=== PATIENT | female | born 1955 | race Caucasian/White ===

== ENCOUNTER 2019-01-15 07:37 | Observation (INO) | payer BC ==
[2019-01-15] MEDS ORDERED: Iodixanol 320 MG/ML 100 ML BOTTLE IV ONE (08:00)
[2019-01-15 08:11] LABS: BASO % 0.5 % (0.0-2.0); EOS % 0.6 % (0.0-4.0); HEMOGLOBIN 12.9 g/dL (11.0-16.0); LYMPH # 1.4 K/uL (1.0-4.3); LYMPH % 29.8 % (20.0-40.0); MEAN CELL VOLUME 77.8 fL (81.0-99.0); MEAN CORPUSCULAR HEMOGLOBIN 25.2 pg (27.0-31.0); MEAN CORPUSCULAR HGB CONC 32.4 g/dL (33.0-37.0); MEAN PLATELET VOLUME 8.3 fL (7.2-11.7); MONO # 0.3 K/uL (0.0-0.8); MONO % 5.6 % (0.0-10.0); NEUT # 3.1 K/uL (1.8-7.0); NEUT % 63.5 % (50.0-75.0); RBC 5.1 Mil/uL (3.80-5.20); RED CELL DISTRIBUTION WIDTH 14.8 % (11.5-14.5); WHITE BLOOD COUNT 4.8 K/uL (4.8-10.8)
[2019-01-15 08:20] LABS: PARTIAL THROMBOPLASTIN TIME 34.7 SECONDS (21-34); PROTHROMBIN TIME 10.8 SECONDS (9.7-12.2)
[2019-01-15 08:25] LABS: ALB/GLOB RATIO 1.7 (1.0-2.1); ALBUMIN 4.6 g/dL (3.5-5.0); ALT/SGPT 18 U/L (9-52); AST/SGOT 24 U/L (14-36); BLOOD UREA NITROGEN 19 mg/dL (7-17); CALCIUM 9.4 mg/dl (8.6-10.4); GFR NON-AFRICAN AMERICAN > 60; HDL CHOLESTEROL 85 mg/dL (30-70)
[2019-01-15 08:36] LABS: LDL CHOLESTEROL 57 mg/dL (0-129)
--- NOTE | 2019-01-15 08:50 | C.PDOC ---
History Of Present Illness Patient presents to ED for evaluation after an episode at approx 6:40am where she has slurred speech, B/L leg weakness anf dizziness. Episode lasted several seconds, and then resolved. Patient has had one prior similar episode, has had some outpatient workup done by insole channeler Dr. Azar (electrocardiogram, echocardiagram). She denies visual changes, sensory changes, chest pain, palpitations. PMHx: HTN, hyperlipidemia, DM II Time Seen by Provider: 01/15/19 07:41 Chief Complaint (Nursing): Dizziness/Lightheaded History Per: Patient History/Exam Limitations: no limitations Onset/Duration Of Symptoms: Mins Current Symptoms Are (Timing): Better Past Medical History Reviewed: Historical Data, Nursing Documentation, Vital Signs Vital Signs: Last Vital Signs Temp 97.9 F 01/15/19 07:44 Pulse 67 01/15/19 08:35 Resp 16 01/15/19 08:35 BP 147/61 01/15/19 08:35 Pulse Ox 100 01/15/19 08:35 Primary Care Provider: Wade Ly - Medical History PMH: Diabetes, HTN, Hypercholesterolemia - Social History Hx Alcohol Use: No Hx Substance Use: No Review Of Systems Constitutional: Negative for: Fever, Chills Cardiovascular: Negative for: Chest Pain Respiratory: Negative for: Cough, Shortness of Breath Gastrointestinal: Negative for: Nausea, Vomiting, Abdominal Pain Neurological: Positive for: Weakness, Change in Speech, Dizziness. Negative for: Numbness, Incoordination, Confusion, Seizures, Altered Mental Status, Headache Physical Exam - Physical Exam Appears: Well, Non-toxic, No Acute Distress Head: Atraumatic, Normacephalic Eye(s): bilateral: Normal Inspection, PERRL, EOMI Oral Mucosa: Moist Cardiovascular: Rhythm Regular Respiratory: Normal Breath Sounds, No Rales, No Rhonchi, No Wheezing Gastrointestinal/Abdominal: Normal Exam, Bowel Sounds, Soft, No Tenderness Extremity: Normal ROM, No Pedal Edema, No Calf Tenderness Neurological/Psych: Oriented x3, Normal Speech, Normal Cognition, Normal Cranial Nerves, No Cerebellar Signs, Normal Motor, Normal Sensation ED Course And Treatment - Laboratory Results Result Diagrams: 01/15/19 08:04 01/15/19 08:04 Lab Results: PT 10.8 SECONDS (9.7-12.2) 01/15/19 08:04 INR 1.0 01/15/19 08:04 APTT 34.7 SECONDS (21-34) H 01/15/19 08:04 Troponin I < 0.0120 ng/mL (0.00-0.120) 01/15/19 08:04 Total Bilirubin 0.6 mg/dL (0.2-1.3) 01/15/19 08:04 AST 24 U/L (14-36) 01/15/19 08:04 ALT 18 U/L (9-52) 01/15/19 08:04 Alkaline Phosphatase 65 U/L (38-126) 01/15/19 08:04 Total Protein 7.3 g/dL (6.3-8.3) 01/15/19 08:04 Albumin 4.6 g/dL (3.5-5.0) 01/15/19 08:04 Globulin 2.7 gm/dL (2.2-3.9) 01/15/19 08:04 Albumin/Globulin Ratio 1.7 (1.0-2.1) 01/15/19 08:04 O2 Sat by Pulse Oximetry: 100 NIHSS Stroke Scale 2 - Date/Time Evaluation Performed Date Performed: 01/15/19 Time Performed: 07:45 When Was NIHSS Performed: Baseline - How Severe is the Stroke Level of Consciousness: 0=Alert LOC to Questions: 0=Both comments correct LOC to commands: 0=Obeys both correctly Best Gaze: 0=Normal Visual: 0=No visual loss Facial: 0=Normal Motor Arm - Left: 0=No drift Motor Arm - Right: 0=No drift Motor Leg - Left: 0=No drift Motor Leg - Right: 0=No drift Limb Ataxia: 0=Absent Sensory: 0=Normal Best Language: 0=No aphasia Dysarthia: 0=Normal articulation Extinction & Inattention (Neglect): 0=Normal, no object Score: 0 rTPA Inclusion/Exclusion - Refusal of Treatment Patient Refused Treatment: No - Inclusion Criteria for Altepase All of the below criteria for inclusion were reviewed: Yes Patient is 18 years or Older: Yes The Clinical Diagnosis of Ischemic Stroke That is Causing a Potentially Disabling Neurological Deficit: No Time of Onset is Well Established to be Less Than 270 Minute Before Treatment Would Begin: Yes Risk/Benefit Discussed With Patient/Family Member Present: No Disposition - Disposition Forms: [employer] (Citizen Of [place])
--- NOTE | 2019-01-15 08:50 | CT ---
Date of service: 01/15/2019 PROCEDURE: CT HEAD WITHOUT CONTRAST. HISTORY: Code Stroke COMPARISON: Not available TECHNIQUE: Axial computed tomography images were obtained through the head/brain without intravenous contrast. Radiation dose: Total exam DLP = 1104.0 mGy-cm. This CT exam was performed using one or more of the following dose reduction techniques: Automated exposure control, adjustment of the mA and/or kV according to patient size, and/or use of iterative reconstruction technique. FINDINGS: HEMORRHAGE: No intracranial hemorrhage. BRAIN: No mass effect or edema. No atrophy or chronic microvascular ischemic changes. VENTRICLES: Unremarkable. No hydrocephalus. CALVARIUM: Unremarkable. PARANASAL SINUSES: Unremarkable as visualized. No significant inflammatory changes. MASTOID AIR CELLS: Unremarkable as visualized. No inflammatory changes. OTHER FINDINGS: None. IMPRESSION: No evidence of acute infarct. Unremarkable unenhanced CT examination of the brain The preliminary findings for this examination were reported by [facility] at 8:16 a.m. on 01/15/2019. There is concurrence of this report with the preliminary findings.
--- NOTE | 2019-01-15 10:28 | CT ---
Date of service: 01/15/2019 PROCEDURE: CT Angiography of the neck and brain with contrast HISTORY: Code stroke COMPARISON: None. TECHNIQUE: Contiguous axial images of the neck and brain were obtained from the level of the vertex of the skull to the superior mediastinum in the arteriographic phase of enhancement. Coronal and sagittal reformats or also generated. IV contrast dose: 100 cc Visipaque 320 Radiation dose: Total exam DLP = 650.3 mGy-cm. This CT exam was performed using one or more of the following dose reduction techniques: Automated exposure control, adjustment of the mA and/or kV according to patient size, and/or use of iterative reconstruction technique. FINDINGS: The aortic arch is widely patent with no significant atherosclerotic calcification or moral plaque. The ascending thoracic aorta measures approximately 3.3 cm and descending thoracic aorta measures approximately 2.4 cm. Origins of the great vessels are also widely patent. The common carotid arteries included carotid bifurcations are also patent. No evidence of significant stenosis despite tiny calcified plaque along the posterior margin proximal left internal carotid artery. The distal internal carotid arteries including the petrous cavernous and supraclinoid segments also patent however note made of minor calcified plaque along both carotid siphons.. The vertebral arteries are patent throughout with no evidence of the dissection nor significant stenosis.. Vertebral arteries are relatively symmetric in caliber.. Basilar artery patent. The visualized major branches of the [id number] or also patent. Mild calcified atherosclerotic plaque seen both carotid siphons. No evidence of large aneurysm nor vascular malformation. The distal anterior middle and posterior cerebral arteries are patent and relatively symmetric so far as can be seen. OTHER FINDINGS: Lung apices are clear. IMPRESSION: No evidence of occlusion dissection or significant stenosis. Some minor calcified plaque changes seen along posterior margin proximal left internal carotid artery with minimal plaque changes both carotid siphons.
--- NOTE | 2019-01-15 10:41 | RAD ---
Chest x-ray single frontal view HISTORY: Code stroke. COMPARISON: None available. FINDINGS: No focal infiltrate or effusion. Bibasilar breast and nipple shadows. Heart size within normal limits. Degenerative changes in the spine. Impression: No focal infiltrate or effusion. Bibasilar breast and nipple shadows.
--- NOTE | 2019-01-15 12:17 | MRI ---
Date of service: 01/15/2019 PROCEDURE: MRI BRAIN WITHOUT CONTRAST HISTORY: Slurred speech, TIA COMPARISON: Comparison made with prior CT scan and CTA brain 01/15/2019. TECHNIQUE: Multiplanar, multisequence MR images of the brain were obtained without intravenous contrast enhancement. FINDINGS: HEMORRHAGE: No acute parenchymal, subarachnoid or extra-axial hemorrhage. No evidence of hemosiderin deposition identified on gradient echo weighted sequence DWI: No evidence of an acute or early subacute infarction seen on diffusion imaging. BRAIN PARENCHYMA: Mild diffuse/confluent chronic periventricular white matter ischemic changes seen extending peripherally into the deep and subcortical white matter both cerebral hemispheres. Multiple more discrete chronic appearing lacunar type infarcts scattered about the deep and subcortical white matter. [id number] generalized volume loss. VENTRICLES: No obstructive hydrocephalus. CRANIUM: Unremarkable. ORBITS: Orbits and contents unremarkable PARANASAL SINUSES/MASTOIDS: Visualized paranasal sinuses are well-developed and currently well-aerated. VASCULAR SYSTEM: Visualized major vascular flow voids at skull base patent. OTHER FINDINGS: None. IMPRESSION: No acute intracranial hemorrhage. Chronic white matter ischemic changes. Mild to moderate generalized volume loss.
--- NOTE | 2019-01-15 15:25 | CP.PCM.CON ---
History of Present Illness - History of Present Illness History of Present Illness: Neurology Consultation Note: Consult requested by Dr. Ly Mrs. Almonte is a 63-year-old woman with a past medical history of HTN, h yperlipidemia, DM II, who was admitted for a transient episode of dysarthria and bilateral lower extremity weakness that lasted for nearly 3 hours. She had two previous episode that were very similar and lasted up to 7 hours. Cardiac work- up in the past was negative (echo, carotid duplex, etc). Her BP in the ED was normal. Non-contrast CT scan of the head was normal. CTA of the head/neck was e ssentially normal. ABCD2 score was 3. MRI of the brain showed scattered T2 hyperintensities, but no acute findings. Neurology was consulted to assist with the management and care. Review of Systems - Review of Systems All systems: reviewed and no additional remarkable complaints except Past Patient History - Past Social History Smoking Status: Never Smoked - CARDIAC Hx Hypercholesterolemia: Yes Hx Hypertension: Yes - ENDOCRINE/METABOLIC Hx Diabetes Mellitus Type 1: Yes - PSYCHIATRIC Hx Substance Use: No - SURGICAL HISTORY Hx Surgeries: Yes Other/Comment: left ankle - ANESTHESIA Hx Anesthesia: Yes Hx Anesthesia Reactions: No Hx Malignant Hyperthermia: No Meds Allergies/Adverse Reactions: Allergies Allergy/AdvReac Type Severity Reaction Status Date / Time Penicillins Allergy Verified 01/15/19 07:48 Physical Exam - Constitutional Appears: Well - Head Exam Head Exam: ATRAUMATIC, NORMAL INSPECTION, NORMOCEPHALIC - Eye Exam Eye Exam: EOMI, Normal appearance, PERRL Pupil Exam: NORMAL ACCOMODATION, PERRL - ENT Exam ENT Exam: Mucous Membranes Moist, Normal Exam - Neck Exam Neck exam: Positive for: Normal Inspection - Respiratory Exam Respiratory Exam: Clear to Auscultation Bilateral, NORMAL BREATHING PATTERN - Cardiovascular Exam Cardiovascular Exam: REGULAR RHYTHM, +S1, +S2 - GI/Abdominal Exam GI & Abdominal Exam: Normal Bowel Sounds, Soft. absent: Tenderness - Extremities Exam Extremities exam: Positive for: normal inspection - Back Exam Back exam: NORMAL INSPECTION - Neurological Exam Neurological exam: Alert, CN II-XII Intact, Normal Gait, Oriented x3, Reflexes Normal Additional comments: NIHSS is 0 - Psychiatric Exam Psychiatric exam: Normal Affect, Normal Mood - Skin Skin Exam: Dry, Intact, Normal Color, Warm Results - Vital Signs Recent Vital Signs: Last Vital Signs Temp 97.9 F 01/15/19 07:44 Pulse 68 01/15/19 11:01 Resp 18 01/15/19 11:01 BP 146/74 01/15/19 11:01 Pulse Ox 98 01/15/19 11:01 - Labs Result Diagrams: 01/15/19 08:04 01/15/19 08:04 Labs: Laboratory Results - last 24 hr 01/15/19 01/15/19 01/15/19 07:54 08:04 08:04 WBC 4.8 RBC 5.10 Hgb 12.9 Hct 39.7 MCV 77.8 L MCH 25.2 L MCHC 32.4 L RDW 14.8 H Plt Count 262 MPV 8.3 Neut % (Auto) 63.5 Lymph % (Auto) 29.8 Bland % (Auto) 5.6 Eos % (Auto) 0.6 Baso % (Auto) 0.5 Neut # (Auto) 3.1 Lymph # (Auto) 1.4 Bland # (Auto) 0.3 Eos # (Auto) 0.0 Baso # (Auto) 0.0 PT 10.8 INR 1.0 APTT 34.7 H Sodium Potassium Chloride Carbon Dioxide Anion Gap BUN Creatinine Est GFR ( Amer) Est GFR (Non-Af Amer) POC Glucose (mg/dL) 123 H Random Glucose Hemoglobin A1c Calcium Total Bilirubin AST ALT Alkaline Phosphatase Troponin I Total Protein Albumin Globulin Albumin/Globulin Ratio Triglycerides Cholesterol LDL Cholesterol Direct HDL Cholesterol Blood Type Antibody Screen 01/15/19 01/15/19 01/15/19 08:04 08:04 08:04 WBC RBC Hgb Hct MCV MCH MCHC RDW Plt Count MPV Neut % (Auto) Lymph % (Auto) Bland % (Auto) Eos % (Auto) Baso % (Auto) Neut # (Auto) Lymph # (Auto) Bland # (Auto) Eos # (Auto) Baso # (Auto) PT INR APTT Sodium 139 Potassium 3.8 Chloride 101 Carbon Dioxide 28 Anion Gap 14 BUN 19 H Creatinine 0.6 L Est GFR ( Amer) > 60 Est GFR (Non-Af Amer) > 60 POC Glucose (mg/dL) Random Glucose 115 H Hemoglobin A1c 6.0 Calcium 9.4 Total Bilirubin 0.6 AST 24 ALT 18 Alkaline Phosphatase 65 Troponin I < 0.0120 Total Protein 7.3 Albumin 4.6 Globulin 2.7 Albumin/Globulin Ratio 1.7 Triglycerides 90 Cholesterol 155 LDL Cholesterol Direct 57 HDL Cholesterol 85 H Blood Type B POSITIVE Antibody Screen Negative Assessment & Plan (1) TIA (transient ischemic attack) Assessment and Plan: The presence of T2 hyperintensities of MRI are concerning for possible cardio- embolic etiology. Paroxysmal dysrhythmia is possible. I recommend placement of a loop recorder for further evaluation. Start aspirin 81 mg daily and continue current medical management of risk factors for stroke. Thank you for this consultation. Status: Acute
[2019-01-15 16:27] VITALS: RESP 20
--- NOTE | 2019-01-15 20:24 | CP.PCM.HP ---
History of Present Illness - History of Present Illness History of Present Illness: Chief complaint: Recurrent weakness HPI: Patient is a 63-year-old female with a history of hypertension, prediabetes, high cholesterol. Patient admitted to the hospital because of the neurological symptoms. 2 months ago patient was working at home, doing her routine activities, suddenly she felt her legs became more heavy bilaterally, and unable to get up, when she was sitting down, and also she was not able to communicate properly, and she was feeling increasingly dizzy, unable to and the feeling was lasted for almost an hour express herself properly to the family member,. Following that the patient went to see cigar wrapper tender automatic, cardiac work-up was done at that time including echo, EKG, carotid Doppler. Most of the cardiac work-up is negative at the time. Again during the at home she had a similar incident. At this time it lasted almost an hour and half to 2 hours, and it disappears. Since then patient was okay until today, when she was going to her work in the [employer], she suddenly felt heavy in her legs, but she was able to manage to go to her office. She woke in the office, in the office she was not able to express herself properly, feeling heavy, dizzy feeling, then coworkers called the ambulance and was sent to the emergency room. In the emergency room patient was continues to have the same symptoms but slowly improved after that. Patient now feeling well. During these episodes patient does not have any urinary incontinence, no tongue bite, no loss of consciousness, she denies any chest pain, no palpitation. No nausea no vomiting no other constitutional symptoms Past medical history: Hypertension high cholesterol. History of prediabetes. Allergies: Allergic to penicillin. Surgical history none Personal history: No alcohol, no substance abuse, full-time working. Current medications reviewed from the chart Review of system: Patient is having no headache. No other visual symptoms. Except the symptoms expressed in the HPI no other systemic symptoms noted On examination: Vital signs are stable. Slight decrease in the blood pressure noted. HEENT PERRLA, neck supple. Chest bilateral good air entry Regular heart sounds noted. Nontender abdomen. No pedal edema. HAND LEATHER TRIMMER alert awake oriented x3 no functional neurological deficit Labs reviewed Nonspecific labs noted. Lipid profile is normal. Renal functions are normal. X-ray chest negative. CT scan of the brain showing no evidence of any acute pathology. MRI of the brain showing multiple white matter disease, chronic ischemic changes in the past noted. Cervical MRA negative for any acute occlusion or dissection. EKG normal sinus rhythm, no ST-T changes noted. Assessment and recommendation: Patient is a 63-year-old female with history of hypertension. Diabetes high cholesterol. On medications controlled well. Admitted with neurological symptoms of bilateral lower extremity weakness, heaviness, feeling dizzy, nonspecific neurological symptoms. There was no focal neurological symptoms noted. Even the imaging studies negative for any acute focal neurological changes. Underlying global neurological condition cannot be ruled out, patient is also having white matter disease, chronic recurrent ischemic changes. Inflammatory condition cannot be ruled out. I appreciate the neurological evaluation. Patient was seen by cigar wrapper tender automatic in the past. We will continue to monitor for next 24 hours. We will repeat the labs in the morning. Neuro watch and will follow the patient. Present on Admission - Present on Admission Any Indicators Present on Admission: No History of DVT/PE: No History of Uncontrolled Diabetes: No Urinary Catheter: No Decubitus Ulcer Present: No Past Patient History - Past Social History Smoking Status: Never Smoked - CARDIAC Hx Hypercholesterolemia: Yes Hx Hypertension: Yes - ENDOCRINE/METABOLIC Hx Diabetes Mellitus Type 1: Yes - PSYCHIATRIC Hx Substance Use: No - SURGICAL HISTORY Hx Surgeries: Yes Other/Comment: left ankle - ANESTHESIA Hx Anesthesia: Yes Hx Anesthesia Reactions: No Hx Malignant Hyperthermia: No Meds Allergies/Adverse Reactions: Allergies Allergy/AdvReac Type Severity Reaction Status Date / Time Penicillins Allergy Verified 01/15/19 07:48 Results - Vital Signs Recent Vital Signs: Last Vital Signs Temp 97.4 F L 01/15/19 15:26 Pulse 75 01/15/19 15:26 Resp 20 01/15/19 15:26 BP 132/80 01/15/19 15:26 Pulse Ox 96 01/15/19 15:26 - Labs Result Diagrams: 01/15/19 08:04 01/15/19 08:04 Labs: Laboratory Results - last 24 hr 01/15/19 01/15/19 01/15/19 07:54 08:04 08:04 WBC 4.8 RBC 5.10 Hgb 12.9 Hct 39.7 MCV 77.8 L MCH 25.2 L MCHC 32.4 L RDW 14.8 H Plt Count 262 MPV 8.3 Neut % (Auto) 63.5 Lymph % (Auto) 29.8 Isabella % (Auto) 5.6 Eos % (Auto) 0.6 Baso % (Auto) 0.5 Neut # (Auto) 3.1 Lymph # (Auto) 1.4 Isabella # (Auto) 0.3 Eos # (Auto) 0.0 Baso # (Auto) 0.0 PT 10.8 INR 1.0 APTT 34.7 H Sodium Potassium Chloride Carbon Dioxide Anion Gap BUN Creatinine Est GFR ( Amer) Est GFR (Non-Af Amer) POC Glucose (mg/dL) 123 H Random Glucose Hemoglobin A1c Calcium Total Bilirubin AST ALT Alkaline Phosphatase Troponin I Total Protein Albumin Globulin Albumin/Globulin Ratio Triglycerides Cholesterol LDL Cholesterol Direct HDL Cholesterol Blood Type Antibody Screen 01/15/19 01/15/19 01/15/19 08:04 08:04 08:04 WBC RBC Hgb Hct MCV MCH MCHC RDW Plt Count MPV Neut % (Auto) Lymph % (Auto) Isabella % (Auto) Eos % (Auto) Baso % (Auto) Neut # (Auto) Lymph # (Auto) Isabella # (Auto) Eos # (Auto) Baso # (Auto) PT INR APTT Sodium 139 Potassium 3.8 Chloride 101 Carbon Dioxide 28 Anion Gap 14 BUN 19 H Creatinine 0.6 L Est GFR ( Amer) > 60 Est GFR (Non-Af Amer) > 60 POC Glucose (mg/dL) Random Glucose 115 H Hemoglobin A1c 6.0 Calcium 9.4 Total Bilirubin 0.6 AST 24 ALT 18 Alkaline Phosphatase 65 Troponin I < 0.0120 Total Protein 7.3 Albumin 4.6 Globulin 2.7 Albumin/Globulin Ratio 1.7 Triglycerides 90 Cholesterol 155 LDL Cholesterol Direct 57 HDL Cholesterol 85 H Blood Type B POSITIVE Antibody Screen Negative 01/15/19 16:50 WBC RBC Hgb Hct MCV MCH MCHC RDW Plt Count MPV Neut % (Auto) Lymph % (Auto) Isabella % (Auto) Eos % (Auto) Baso % (Auto) Neut # (Auto) Lymph # (Auto) Isabella # (Auto) Eos # (Auto) Baso # (Auto) PT INR APTT Sodium Potassium Chloride Carbon Dioxide Anion Gap BUN Creatinine Est GFR ( Amer) Est GFR (Non-Af Amer) POC Glucose (mg/dL) 106 Random Glucose Hemoglobin A1c Calcium Total Bilirubin AST ALT Alkaline Phosphatase Troponin I Total Protein Albumin Globulin Albumin/Globulin Ratio Triglycerides Cholesterol LDL Cholesterol Direct HDL Cholesterol Blood Type Antibody Screen
[2019-01-16 07:14] LABS: ALB/GLOB RATIO 1.7 (1.0-2.1); ALT/SGPT 20 U/L (9-52); AST/SGOT 17 U/L (14-36); BLOOD UREA NITROGEN 22 mg/dL (7-17); CALCIUM 8.9 mg/dl (8.6-10.4); GFR NON-AFRICAN AMERICAN > 60
[2019-01-16 07:18] LABS: BASO % 0.3 % (0.0-2.0); EOS # 0.1 K/uL (0.0-0.7); EOS % 1.1 % (0.0-4.0); LYMPH # 1.8 K/uL (1.0-4.3); LYMPH % 36.8 % (20.0-40.0); MEAN CORPUSCULAR HEMOGLOBIN 25.3 pg (27.0-31.0); MEAN CORPUSCULAR HGB CONC 33.3 g/dL (33.0-37.0); MEAN PLATELET VOLUME 8.4 fL (7.2-11.7); MONO # 0.3 K/uL (0.0-0.8); MONO % 6.4 % (0.0-10.0); NEUT # 2.7 K/uL (1.8-7.0); NEUT % 55.4 % (50.0-75.0); NRBC % 0.1 % (0.0-2.0); RBC 4.72 Mil/uL (3.80-5.20); RED CELL DISTRIBUTION WIDTH 14.9 % (11.5-14.5)
[2019-01-16 07:49] LABS: FERRITIN 15.2 ng/mL
[2019-01-16 08:42] VITALS: BP 133/77; PULSE 70; TEMP 98.1; O2SAT 94
[2019-01-16 10:05] LABS: FOLATE 11.7 ng/mL
== END 2019-01-16 12:28 | disposition home or self-care (01) ==
LOC: C.ER 07:37 → C.9E 09:29 → C.6T 11:04
PROVIDERS: ADMIT Internal Medicine; ATTEND Internal Medicine
DX: G45.9 Transient cerebral ischemic attack, unspecified (principal); I10 Essential (primary) hypertension; E11.9 Type 2 diabetes mellitus without complications; E78.5 Hyperlipidemia, unspecified; R47.1 Dysarthria and anarthria; R42 Dizziness and giddiness; Z79.84 Long term (current) use of oral hypoglycemic drugs; Z79.899 Other long term (current) drug therapy; Z79.82 Long term (current) use of aspirin
CPT/HCPCS: 36415; 70450; 70496; 70498; 70551; 71045; 80053; 80061; 82607; 82728; 82746; 82948; 83036; 83090; 83520; 83735; 84100; 84443; 84484; 85025; 85610; 85651; 85730; 86038; 86140; 86618; 86850; 86900; 99285; G0378; Q9967